=== PATIENT | male | born 1985 | race Caucasian/White ===

== ENCOUNTER 2017-10-07 03:37 | Emergency (ER) | payer OTHER ==
[2017-10-07 03:44] VITALS: BP 136/67
--- NOTE | 2017-10-07 04:37 | ER Document Report ---
HPI - HPI Pain Level: 1 Notes: Patient is a 32-year-old male with no significant past medical history who presents to the ED complaining of decreased hearing to his right ear and his noticing a little bit of blood in his canal this past night. Patient states that he does have a dull ache to the ear, but denies any trauma or recent illness. He is eating and drinking without difficulties. He is urinating normally normal bowel movements. He has no other concerns or complaints at this time. Patient states he does not use Q-tips. Denies any drug allergies. Denies any headache, fever, head injury, neck pain, URI, sore throat, chest pain, palpitations, syncope, cough, shortness of breath, wheeze, dyspnea, abdominal pain, nausea/vomiting/diarrhea, urinary retention, dysuria, hematuria, or rash. - ROS Systems Reviewed and Negative: Yes All other systems reviewed and negative Past Medical History - Social History Smoking Status: Never Smoker Family History: Reviewed & Not Pertinent Vertical Provider Document - CONSTITUTIONAL Agree With Documented VS: Yes Notes: PHYSICAL EXAMINATION: GENERAL: Well-appearing, well-nourished and in no acute distress. HEAD: Atraumatic, normocephalic. EYES: Pupils equal round and reactive to light, extraocular movements intact, sclera anicteric, conjunctiva are normal. ENT: Rt EAC, cerumen impaction with scant dried blood to the outer inferior canal. Lt EAC wnl. Rt TM unable to visualize. Rt TM wnl. + dec hearing to the rt ear vs left. Nares patent and without discharge. oropharynx clear without exudates. No tonsilar hypertrophy or erythema. Moist mucous membranes. No sinus tenderness. NECK: Normal range of motion, supple without lymphadenopathy LUNGS: Breath sounds clear to auscultation bilaterally and equal. No wheezes rales or rhonchi. HEART: Regular rate and rhythm without murmurs, rubs, gallops. Extremities: No cyanosis, clubbing, or edema b/l. Peripheral pulses 2+. Capillary refill less than 3 seconds. NEUROLOGICAL: Cranial nerves grossly intact. Normal speech, normal gait. Normal sensory, motor exams PSYCH: Normal mood, normal affect. SKIN: Warm, Dry, normal turgor, no rashes or lesions noted. - INFECTION CONTROL TRAVEL OUTSIDE OF THE [place] IN LAST 30 DAYS: No Course - Re-evaluation Re-evalutation: 10/07/17 04:34 Patient is an afebrile, well-hydrated, 32-year-old male who presents to the ED with cerumen impaction to his right ear. Vitals are acceptable. PE is otherwise unremarkable aside from the scant blood superficially. It appears as though patient may have scratched or picked inside of his ear which caused scant bleeding. The cerumen appears hardened and will need to be softened prior to attempt at cerumen disimpaction. Low suspicion for any other acute systemic condition at this time. I will send him home with a prescription for debrox. I will also give him information for ear nose and throat that he may call on Sunday to schedule an appointment. Return to the ED with any worsening/ concerning symptoms otherwise as reviewed discharge. Patient is in agreement. - Vital Signs Vital signs: Temp Pulse Resp BP Pulse Ox 97.4 F 65 18 136/67 H 99 10/07/17 03:42 10/07/17 03:42 10/07/17 03:42 10/07/17 03:42 10/07/17 03:42 Discharge - Discharge Clinical Impression: Impacted cerumen of right ear Condition: Stable Disposition: HOME, SELF-CARE Instructions: Cerumen Impaction ([facility]) Additional Instructions: Use the eardrops as directed Avoid Q-tips or scratching inside of her ear Tylenol/Motrin as needed Call Sunday to schedule an appointment with the ear nose and throat provider Return to the ED with any worsening symptoms and/or development of fever, headache, chest pain, palpitations, syncope, shortness of breath, trouble breathing, abdominal pain, n/v/d, blood in stool/urine, or other worsening symptoms that are concerning to you. Prescriptions: Carbamide Peroxide [Debrox 6.5 % Otic Drops 15 ml] 5 - 10 drop OT QID #1 bottle Forms: Elevated Blood Pressure Referrals: JEFE MCKENZIE DO [Primary Care Provider] - Follow up as needed PATRICIO IRAHETA DO [ASSOCIATE] - Follow up in 3-5 days
== END 2017-10-07 04:45 | disposition home or self-care (01) ==
LOC: ER 03:37
DX: H61.21 Impacted cerumen, right ear (principal)
CPT/HCPCS: 99282

== ENCOUNTER 2019-12-16 23:00 | Emergency (ER) | payer OTHER ==
[2019-12-16] MEDS ORDERED: AMOXICILLIN TR/POT CLAVULANATE 875-125 MG TAB PO ONE (23:52)
--- NOTE | 2019-12-16 23:53 | ER Document Report ---
HPI - HPI Time Seen by Provider: 12/16/19 23:52 Pain Level: 1 Notes: Otherwise healthy 34 year old male presenting to the ED with complaints of a cat bite to his left index finger. He states that his cat was caught in the window blinds and while trying to help the cat , the cat got scared and bit him. Cats immunizations are UTD. Patient simmunizations are UTD. - ROS Systems Reviewed and Negative: Yes All other systems reviewed and negative - DERM Skin Problems: Puncture Wound - occured just prior to arrival, left index finger Past Medical History - General Information source: Patient - Social History Smoking Status: Current Every Day Smoker Frequency of alcohol use: None Drug Abuse: None Family History: Reviewed & Not Pertinent Patient has homicidal ideation: No - Medical History Medical History: Negative Renal/ Medical History: Denies: Hx Peritoneal Dialysis Surgical Hx: Negative - Immunizations Immunizations up to date: Yes Vertical Provider Document - CONSTITUTIONAL Notes: PHYSICAL EXAMINATION: GENERAL: Well-appearing, well-nourished and in no acute distress. HEAD: Atraumatic, normocephalic. EYES: Pupils equal round extraocular movements intact, conjunctiva are normal. ENT: Nares patent NECK: Normal range of motion LUNGS: No respiratory distress Musculoskeletal: Normal range of motion NEUROLOGICAL: Normal speech, normal gait. PSYCH: Normal mood, normal affect. SKIN: Swelling and erythema noted to left index finger, puncture wounds noted. No active bleeding, no repairable laceration. Cap refill less than 3 seconds. Normal motor and sensation to area. - INFECTION CONTROL TRAVEL OUTSIDE OF THE [place] IN LAST 30 DAYS: No Course - Re-evaluation Re-evalutation: Patient appears well, nontoxic, vital signs reviewed. Patient does have puncture wounds noted to his left index finger. Patient has already thoroughly washed these prior to arrival. His tetanus is up-to-date. He will be started on Augmentin. Very strict ED return precautions discussed and all signs and symptoms of infection discussed. Patient verbalizes understanding and agreement with same. - Vital Signs Vital signs: Temp Pulse Resp BP Pulse Ox 98.4 F 63 16 138/66 H 97 12/16/19 23:43 12/16/19 23:21 12/16/19 23:21 12/16/19 23:21 12/16/19 23:21 Discharge - Discharge Clinical Impression: Cat bite Condition: Stable Disposition: HOME, SELF-CARE Additional Instructions: Animal Bites Animal bites are often heavily contaminated with bacteria. In spite of thorough cleansing and proper treatment, these wounds frequently become infected. Bite wounds of the hands are especially prone to complications. Bites are dressed, if possible. Large wounds may require suturing after internal cleansing. Because of infection risk, some large wounds must remain unstitched. Your doctor is trained to advise you on the best treatment for your bite. Call the doctor at once if the wound becomes red, swollen, warm, increasingly painful, or if it begins to drain. Danger signs also include red streaks up the involved extremity, swollen glands in the groin or under the arm, or fever and chills. The risk of rabies from domestic animals is very low. Bats, sick animals, and wild animals may expose you to rabies. The physician, or the health department, will inform you if you will need to receive the rabies vaccine. Please take antibiotics as prescribed. Watch very closely for signs of infection to include increasing swelling, pain, redness, red streaking from the area, development of fever or any other worsening symptoms. Prescriptions: Amoxicillin/Potassium Clav [Augmentin 875-125 Tablet] 1 tab PO BID 10 Days #20 tablet Referrals: JEFE MCKENZIE, [Primary Care Provider] - Follow up as needed
[2019-12-17 00:11] VITALS: BP 130/70
== END 2019-12-17 00:10 | disposition home or self-care (01) ==
LOC: ER 23:00
DX: T14.8XXA Other injury of unspecified body region, initial encounter (principal); W55.01XA Bitten by cat, initial encounter
CPT/HCPCS: 99283; J3490